=== PATIENT | male | born 1970 ===

== ENCOUNTER 2017-01-23 13:00 | Inpatient (IN) | payer BC ==
[2017-01-23] MEDS ORDERED: Ondansetron INJ* 2 MG/ML VIAL IV PRN (21:26)
[2017-01-23] MEDS ORDERED: HYDROmorphone* 1 MG/ML 1 ML SYR ONE (21:59)
[2017-01-23] MEDS: Metoprolol Tartrate IV* 1 MG/ML 5 ML VIAL IV SCH (23:02)
[2017-01-23] MEDS: HYDROmorphone* 1 MG/ML 1 ML SYR IV PRN (23:07)
[2017-01-24] MEDS: HYDROmorphone* 1 MG/ML 1 ML SYR IV PRN ×9 (01:06→21:25)
[2017-01-24] MEDS: Metoprolol Tartrate IV* 1 MG/ML 5 ML VIAL IV SCH ×4 (05:04→22:10)
[2017-01-24 06:24] LABS: Add Diff/Slide Review? Slide Review Added; Comments Flag Yes; Hematocrit 43 % (42-52); Hemoglobin 14.4 g/dl (14.0-18.0); Mean Corpuscular HGB Conc 34 g/dl (31-36); Mean Corpuscular Hemoglobin 29 pg (27-31); Mean Corpuscular Volume 87 fL (80-94); Mean Platelet Volume 9 um3 (7.4-10.4); Red Cell Distribution Width 13 % (10.5-15); White Blood Count 20.1 10^3/ul (3.5-10.8)
[2017-01-24 06:43] LABS: Albumin 3.7 g/dL (3.2-5.2); BUN/Creatinine Ratio 7.2 (8-20); C Reactive Protein 63.03 mg/L (< 5.00); Calcium 8.7 mg/dL (8.6-10.3); EGFR African American 127.7 (>60); EGFR Non-African American 99.3 (>60); Potassium 3.7 mmol/L (3.5-5.0); Total Bilirubin 1.2 mg/dL (0.2-1.0); Total Protein 6.7 g/dL (6.4-8.9)
[2017-01-24 06:48] LABS: Immature Granulocytes 6 % (0-9); Neutrophil % 79 % (38-83); Reactive Lymph % 10 % (0-6)
[2017-01-24 06:49] LABS: RBC Morphology Normal (Normal)
--- NOTE | 2017-01-24 08:45 | CONSULT ---
Consult Consult: Admission H&P dictated. Impression/Plan: Acute cholecystitis, plan for OR later this AM for laparoscopic cholecystectomy. Keep NPO IVF and Abx
[2017-01-24] MEDS: Acetaminophen TAB* 325 MG PO ONE ×2 (08:56→09:00)
[2017-01-24] MEDS: oxyCODONE/Acetamin 5/325 MG* TAB PO PRN ×3 (09:21→22:05)
--- NOTE | 2017-01-24 12:07 | HP ---
ADMISSION HISTORY AND PHYSICAL: DATE OF ADMISSION: 01/23/17 PATIENT OF: Zeferino Navarrete MD (DICTATED BY LIAT URRUTIA) REASON FOR ADMISSION: Right upper quadrant abdominal pain. HISTORY OF PRESENT ILLNESS: Mr. Dover is a pleasant 46-year-old gentleman who presented to [facility] with complaints of worsening right upper quadrant abdominal pain for the last 24 hours. The patient notes that his pain started approximately 3 o'clock on Tuesday morning with no indications that triggered the pain. He denies eating any fatty dinner that night. He never had any complaints like that before. He described it as a sudden onset of severe epigastric and right upper quadrant abdominal pain with associated nausea and multiple episodes of emesis. He denies any jaundice, changes in the color of stool or urine or any known history of gallbladder disease in the past. He presented to [facility] and had laboratory workup and ultrasound that revealed finding consistent with acute cholecystitis for which, he was sent to the emergency room at [facility] for further evaluation. The patient had laboratory workup that revealed significant leukocytosis and he also was feverish and for which, a surgical consultation was obtained and the patient was directly admitted in anticipation for gallbladder surgery. He otherwise is a previously healthy 46-year-old gentleman with no significant past medical history with exception of hypertension for which, he has been on metoprolol and recently started on metformin due to slight hyperglycemia on fasting values. This morning, he feels relatively better; however, he has been taking Dilaudid on a regular basis overnight. He remained febrile with a temperature of 101 to 102 overnight that was relieved using Tylenol. PAST MEDICAL HISTORY: As mentioned above significant for hypertension and borderline type 2 diabetes mellitus. PAST SURGICAL HISTORY: Significant for exploratory laparotomy with correction of intussusception back in [address] Navarrete. CURRENT MEDICATIONS: Include: 1. Metformin 500 mg one tab b.i.d. 2. Metoprolol 25 mg p.o. every day. ALLERGIES: He has no known drug allergies. FAMILY HISTORY: He denies any family history of gallbladder disease or colorectal malignancies. SOCIAL HISTORY: The patient is a former smoker who quit 2 years ago. He used to smoke half a pack per day. He drinks alcohol on occasion and denies illicit drug use. REVIEW OF SYSTEMS: See HPI, otherwise negative. He denies any headache, dizziness, syncope, or blurred vision. He reports fever and chills at home, but denies any recent weight loss. He reports abdominal pain, severe at times with radiation to the back and associated nausea and vomiting. He denies any flank pain, history of kidney stones, dysuria, hematuria, or urinary frequency. PHYSICAL EXAMINATION GENERAL: He is a pleasant, healthy-appearing 46-year-old gentleman, appears in moderate discomfort, but in no acute distress this morning. VITAL SIGNS: His vitals this morning revealed a temperature of 101.5, pulse of 81, blood pressure of 135/72, and O2 sat of 93% on room air. HEENT: Sclerae anicteric. PERRLA. EOMs intact. Oropharynx is pink, moist with no exudate. NECK: Supple. Trachea midline. No cervical adenopathy noted. No thyromegaly. LUNGS: Clear to auscultation bilaterally. No rales, wheezes, or rhonchi. HEART: Regular rate and rhythm. Normal S1 and S2 without rubs, murmurs, or gallops. BACK: Normal curvature. No CVA tenderness. ABDOMEN: Soft and nondistended. There is moderate right upper quadrant tenderness noted on light palpation. There is a moderate guarding and rebound tenderness as well, but no rigidity. Bhandari sign was positive. No hernias, masses, or hepatosplenomegaly. EXTREMITIES: Without cyanosis, clubbing, or edema. NEUROLOGIC: Grossly intact. RECTAL: Deferred at this time. DIAGNOSTIC STUDIES/LAB DATA: Laboratory workup: CBC earlier this morning with white count of 20,000 and a 6% band; hemoglobin of 14.4; hematocrit 43; and platelets of 210. Chemistry showed sodium 133, potassium 3.7, chloride 99, CO2 27, BUN 6, and creatinine 0.8. His LFTs slightly elevated with total bilirubin of 1.2, AST of 12, ALT of 18, and alk phos of 59. Amylase and lipase were within normal limits. His C-reactive protein was 63. Accessory diagnostic data: The patient had an ultrasound at [facility] and an official report I cannot obtain at this time; however, according to the patient, it shows signs and findings consistent with acute cholecystitis. IMPRESSION: A 46-year-old gentleman with leukocytosis and severe onset of sudden right upper quadrant abdominal pain as well as radiographic findings consistent with acute cholecystitis. PLAN/RECOMMENDATIONS: The patient was directly admitted under surgical services. He was kept n.p.o. with IV hydration and antibiotics. I discussed with him proceeding with laparoscopic cholecystectomy today. The rationale, indications, risks, and benefits of surgery were discussed with him today. Risks include but not limited to infection, bleeding, or injury to adjacent structures. He appears to understand and wishes to proceed as outlined. We would likely take him later this afternoon for surgery. He remains comfortable at this time with well controlled pain medication and he was given Tylenol as needed to control his fever and we will follow him up accordingly. [facility] LIAT BLANDON [id number]/CPS #: [id number] MTDCiara
[2017-01-24] MEDS ORDERED: Acetaminophen TAB* 325 MG PO PRN (16:37)
[2017-01-24] MEDS ORDERED: Dextrose 50% Syringe 50 ML* 25 GM/50 ML SYRINGE IV PUSH PRN (16:39)
[2017-01-24] MEDS: Insulin LISPRO* 1 UNITS UNIT SUBCUT SCH (18:07)
[2017-01-25] MEDS: Insulin LISPRO* 1 UNITS UNIT SUBCUT SCH ×5 (00:03→21:48)
[2017-01-25] MEDS: Metoprolol Tartrate IV* 1 MG/ML 5 ML VIAL IV SCH ×2 (03:50→11:24)
[2017-01-25] MEDS: HYDROmorphone* 1 MG/ML 1 ML SYR IV PRN (03:52)
[2017-01-25] MEDS: oxyCODONE/Acetamin 5/325 MG* TAB PO PRN ×4 (03:53→19:49)
[2017-01-25] MEDS ORDERED: PROCHLORPERAZINE INJ 5 MG/ML 2 ML VIAL IV PRN (05:54)
[2017-01-25] MEDS ORDERED: Morphine INJ* 2 MG/ML 1 ML SYRINGE IV PRN (05:54)
[2017-01-25] MEDS ORDERED: oxyCODONE/Acetamin 5/325 MG* TAB PO PRN (05:54)
[2017-01-25] MEDS ORDERED: Famotidine IV* 10 MG/ML 2 ML (20 mg) IV SLOW PU ONE (06:00)
[2017-01-25 06:21] LABS: Hematocrit 44 % (42-52); Hemoglobin 14.5 g/dl (14.0-18.0); Mean Corpuscular HGB Conc 33 g/dl (31-36); Mean Corpuscular Hemoglobin 30 pg (27-31); Mean Corpuscular Volume 89 fL (80-94); Mean Platelet Volume 10 um3 (7.4-10.4); Red Blood Count 4.89 10^6/ul (4.0-5.4); Red Cell Distribution Width 13 % (10.5-15); White Blood Count 21.5 10^3/ul (3.5-10.8)
[2017-01-25 06:43] LABS: Albumin 3.8 g/dL (3.2-5.2); BUN/Creatinine Ratio 8.3 (8-20); Calcium 9.2 mg/dL (8.6-10.3); Globulin 3.3 g/dL (2-4); Potassium 3.1 mmol/L (3.5-5.0); Total Bilirubin 1.7 mg/dL (0.2-1.0); Total Protein 7.1 g/dL (6.4-8.9)
[2017-01-25] MEDS ORDERED: Bupivacaine 0.25% EPI 200,000* 30 ML SDV ONE ×2 (07:22→09:21)
[2017-01-25] MEDS ORDERED: fentaNYL* 50 MCG/ML 5 ML VIAL (250 MCG VIAL) ONE (07:27)
[2017-01-25] MEDS ORDERED: Midazolam* 1 MG/ML 5 ML VIAL (5 MG) ONE (07:27)
[2017-01-25] MEDS ORDERED: Atracurium* 10 MG/ML 10 ML VIAL ONE (07:27)
[2017-01-25] MEDS ORDERED: KETAMINE HCL* 50 MG/ML 10 ML VIAL ONE (07:27)
[2017-01-25] MEDS ORDERED: Iohexol 180 (CONTRAST) 10 ML SDV IV ONE (07:54)
[2017-01-25] MEDS ORDERED: EPHEDrine (Pressors)* 50 MG/ML VIAL ONE (08:23)
[2017-01-25] MEDS ORDERED: Glycopyrrolate IV* 0.2 MG/ML 1 ML VIAL ONE (08:23)
[2017-01-25] MEDS ORDERED: Lidocaine 2% PF * 5 ML VIAL ONE (08:23)
[2017-01-25] MEDS ORDERED: Propofol* 10 MG/ML 20 ML BTL IV PUSH ONE (08:23)
[2017-01-25] MEDS ORDERED: PROCHLORPERAZINE INJ 5 MG/ML 2 ML VIAL ONE (08:23)
[2017-01-25] MEDS ORDERED: Ondansetron INJ* 2 MG/ML VIAL ONE (08:23)
[2017-01-25] MEDS ORDERED: Neostigmine Methylsulfate* 2 MG/2 ML SYRINGE ONE (08:23)
[2017-01-25] MEDS ORDERED: Metoprolol Tartrate IV* 1 MG/ML 5 ML VIAL ONE (09:16)
[2017-01-25] MEDS ORDERED: hydrALAZINE IV* 20 MG/ML VIAL ONE (09:33)
--- NOTE | 2017-01-25 09:41 | PN ---
Progress Note - Progress Note Note: Brief Operative Note: Preop Dx: acute cholecystitis Postop Dx: same Procedure: Laparoscopic cholecystectomy Anesthesia: GET Surgeon: Rosalba Asst: LIAT Flores Fluids: 1500 ml RL EBL: <100 ml Drains: 1 MAIRA Specimen: gallbladder
[2017-01-25] MEDS ORDERED: fentaNYL* 50 MCG/ML 2 ML VIAL (100 MCG VIAL) ONE (10:00)
[2017-01-25] MEDS: fentaNYL* 50 MCG/ML 2 ML VIAL (100 MCG VIAL) IV PRN ×2 (10:01→10:24)
[2017-01-25] MEDS: Metoprolol Tartrate TAB* 25 MG PO SCH (21:47)
[2017-01-26] MEDS: oxyCODONE/Acetamin 5/325 MG* TAB PO PRN ×4 (00:03→13:19)
[2017-01-26] MEDS: HYDROmorphone* 1 MG/ML 1 ML SYR IV PRN ×3 (00:05→13:26)
[2017-01-26] MEDS: Metoprolol Tartrate TAB* 25 MG PO SCH (08:43)
[2017-01-26] MEDS: Insulin LISPRO* 1 UNITS UNIT SUBCUT SCH ×2 (09:48→13:21)
--- NOTE | 2017-01-26 10:08 | PN ---
Progress Note - Progress Note SOAP: Subjective:postop day #1;tolerating low fat diet;passing flatus;no dysuria;good pain control [] Objective:alert and oriented,sitting at bedside;lungs:clear bilaterally;heart: RRR,no murmur;Abd:large,+bs;incisions intact with steris and tegaderm,no erythema or drainage;MAIRA drain intact with skin suture,no erythema at exit site, draining serous,patent;Ext:nontender calves,no edema Vital Signs Temp 99.1 F 01/26/17 07:28 Pulse 85 01/26/17 07:28 Resp 16 01/26/17 09:49 BP 144/86 01/26/17 07:28 Pulse Ox 90 01/26/17 07:28 Intake & Output 01/25/17 01/26/17 01/26/17 18:59 06:59 18:59 Intake Total 2581 2740 980 Output Total 330 1605 Balance 2251 1135 980 Intake: IV Fluids 1816 1162 980 ABX - ZOSYN 206 LR 1791 896 980 NS (0.9%) 60 IVPB 105 98 ABX - ZOSYN 98 Oral 660 1480 Output: MAIRA #1 40 30 Urine 250 1575 Residual 40 Steward 16 Fr 40 [] Assessment:stable POD#1 s/p Lap cholecystectomy [] Plan:recheck CBC,P33;discharge later today on Augmentin 875mg bid for [address] Navarrete;teach MAIRA drain care;discharge instructions reviewed;office visit scheduled for Tuesday01/31/17 []
[2017-01-26 10:55] LABS: Hematocrit 38 % (42-52); Hemoglobin 12.7 g/dl (14.0-18.0); Mean Corpuscular HGB Conc 33 g/dl (31-36); Mean Corpuscular Hemoglobin 29 pg (27-31); Mean Corpuscular Volume 88 fL (80-94); Mean Platelet Volume 9 um3 (7.4-10.4); Red Blood Count 4.31 10^6/ul (4.0-5.4); Red Cell Distribution Width 13 % (10.5-15); White Blood Count 14.3 10^3/ul (3.5-10.8)
[2017-01-26 11:14] LABS: Albumin 3.2 g/dL (3.2-5.2); BUN/Creatinine Ratio 9.1 (8-20); Calcium 8.7 mg/dL (8.6-10.3); EGFR African American 119.4 (>60); EGFR Non-African American 92.8 (>60); Globulin 3.2 g/dL (2-4); Potassium 3.5 mmol/L (3.5-5.0); Total Bilirubin 0.7 mg/dL (0.2-1.0); Total Protein 6.4 g/dL (6.4-8.9)
[2017-01-26 12:28] VITALS: BP 128/82
--- NOTE | 2017-01-26 16:21 | DS ---
CC: Dr. Jose Roberson, [place], [place] DATE OF ADMISSION: 01/23/2017. DATE OF DISCHARGE: 01/26/2017. ATTENDING SURGEON: Dr. Zeferino Navarrete (LIAT Madison dictating). HOSPITAL COURSE: Please refer to admission history and physical for admission details. Briefly, th e patient was admitted with work-up consistent with acute cholecystitis which was notable for leukoc ytosis and fever. He was initiated on Zosyn IV, which was continued through the perioperative perio d. He was taken to the operating room on 01/25/2017 at which time he underwent laparoscopic cholecy stectomy. Findings at the time of surgery included acute inflammatory changes with purulent cholecy stitis. There was some spillage during the case. The abdominal cavity was irrigated copiously and a Steve-Riggs drain was left in place. Zosyn was continued postoperatively for another 24 hours, during which time the patient was afebrile and white blood cell count came down from 21.5 to 14.3. A s of the morning of discharge, the drainage was light, clear serosanguineous with no bilious compone nt and therefore it was decided to remove the drain. Other lab work of note, total bilirubin initia lly 1.2, dipti to 1.7, back down to 0.7 the morning of discharge. His fingerstick glucoses the last 24 hours of admission ranged from 176 to 206. The patient was to be discharged on Augmentin 875 mg b.i.d., along with Percocet prn for stronger pain. He will resume his usual Metformin 500 mg b.i.d. and Metoprolol 25 mg daily. He has a follow-up with our office on 01/31/2017 and will be seen by h is primary medical on an as needed basis. LIAT RASMUSSEN [id number]/[facility] #: [id number]
--- NOTE | 2017-01-27 00:26 | OP ---
CC: Dr. Deanna Garza * DATE OF OPERATION: 01/25/17 - ROOM #334 DATE OF : 68 SURGEON: Zeferino Navarrete MD RESTAURANT WORKER: LIAT Madison ANESTHESIOLOGIST: Dr. Méndez. ANESTHESIA: General anesthesia. PRE-OP DIAGNOSIS: Acute cholecystitis. POST-OP DIAGNOSIS: Acute cholecystitis. OPERATIVE PROCEDURE: Laparoscopic cholecystectomy. INDICATIONS: Mr. Dover is a 46-year-old gentleman admitted from [place] with the diagnosis of acute cholecystitis. I discussed with him the case. Plan was for cooling him down with antibiotics. This was done, and described laparoscopic cholecystectomy to him, going over the risks, benefits, and alternatives. The patient understood these as well as the possible complications which include, but not limited to, bleeding, infection, bile leak , common bile duct or bowel injury, retained common bile duct stone, the need for open procedure or additional procedures. The patient's questions were answered and consent signed. BLOOD LOSS: Less than 100 cc. FLUIDS: Crystalloid fluid given. DRAINS: #10 MAIRA drain left in Morison's pouch. SPECIMEN: Gallbladder. COUNTS: Lap pad count and instrument count correct at the end of the procedure. DESCRIPTION OF PROCEDURE: On the day of surgery, the patient was marked, brought to the operating room, placed on the operating table in supine position. Preoperative antibiotics had been given. Sequential devices were placed on bilateral lower extremities. General anesthesia was induced. The patient's abdomen was clipped of hair and then prepped and draped in the standard surgical fashion. A Steward catheter had been inserted. A time-out was performed. An incision was made at the right subcostal area along the midclavicular line just 2 fingerbreadths below the costal margin. This was deepened down the anterior fascia, which was elevated and a Veress needle was inserted into the abdominal cavity which was allowed to insufflate to a pressure of 15 mmHg. The patient tolerated the insufflation well. Periumbilical incision was made and a 12-mm trocar was inserted safely into this site. Camera was inserted and there was no evidence of injury from the Veress needle, which was then removed and a 5 -mm trocar was then placed at that site and an additional 5 mm placed on the right lateral abdomen and a 12 mm in the subxiphoid area. Gallbladder was identified. It was significantly distended. There was free fluid about the liver. The gallbladder was drained with an aspiration needle removing approximately 50 cc of hydroptic fluid. This allowed us to grasp the fundus of the gallbladder and elevate it about the liver. Infundibulum was then grasped and retracted towards the right lower quadrant. This gave us a critical view. The gallbladder wall was significantly edematous. We took the peritoneal attachments off the lateral aspect of the gallbladder and off the medial aspect. We did puncture into the gallbladder and purulent fluid was drained. Holding fast to this opening and preventing additional leakage, we were able to isolate the cystic duct and cystic artery. Cystic duct was triply clipped and ligated. Cystic artery was doubly clipped and ligated, and the gallbladder was removed from the liver bed and placed in an endoscopic retrieval bag and placed over the liver. Copious irrigation was then utilized to irrigate all the Morison's pouch and above the liver. Review of the cystic duct stump and cystic artery stump showed no bleeding or bile leak. The gallbladder was then removed through the subxiphoid port site and a #10 MAIRA drain was inserted. This was brought out through the lateral most port site and sutured to the skin with 3-0 Surgipro sutures and placed in Morison's pouch. The camera was shifted to the subxiphoid port site and the periumbilical port site was reapproximated at the fascial layer with an 0 Polysorb suture using an Endo Close device. That was repositioned back to neutral. Hemostasis was excellent. We reviewed the abdomen. No additional findings were noted. The abdomen was allowed to collapse. Trocars were removed under direct vision and the additional 3 skin incisions were reapproximated with 4-0 Monocryl subcuticular sutures followed by a sterile dressing. The patient tolerated the procedure well, was awoken up in the OR, and transferred to the PACU in stable condition. [id number]/[facility] #: [id number] TG
== END 2017-01-26 14:45 | disposition home or self-care (01) | DRG 263 ==
LOC: SSU 13:00 → OBSVTOIN 01-24 13:00
PROVIDERS: ADMIT Surgery; ATTEND Surgery
PROC: 0FT44ZZ Resection of Gallbladder, Percutaneous Endoscopic Approach (ICD-10-PCS; principal; 2017-01-25 08:00)
DX: K81.0 Acute cholecystitis (principal); I10 Essential (primary) hypertension; E11.9 Type 2 diabetes mellitus without complications; Z87.891 Personal history of nicotine dependence; Z72.89 Other problems related to lifestyle; Z79.84 Long term (current) use of oral hypoglycemic drugs
CPT/HCPCS: 36415; 80053; 83690; 85025; 86140; 88304; A9270-GY; G0378; J0360; J0780; J1170; J2250; J2405; J2543; J2704; J3010